=== PATIENT | male | born 1990 | race Caucasian/White ===

== ENCOUNTER 2023-02-14 11:45 | Outpatient (CLI) | payer MEDICAID | END 2023-02-14 12:00 | disposition home or self-care (01) | LOC: LAB.N 11:45 | PROVIDERS: ATTEND Family Medicine | DX: L02.415 Cutaneous abscess of right lower limb (principal) | CPT/HCPCS: 87070; 87181; 87205 ==

== ENCOUNTER 2023-11-04 10:27 | Outpatient (CLI) | payer MEDICAID ==
[2023-11-04 11:03] LABS: BASOPHILS % (AUTO) 0.4 %; EOSINOPHILS # (AUTO) 0.2 10^3/uL (0.0-0.7); EOSINOPHILS % (AUTO) 4.3 %; HCT - HEMATOCRIT 44.3 % (42.0-52.0); HGB - HEMOGLOBIN 15.2 g/dL (14.0-18.0); LYMPHOCYTES # (AUTO) 0.3 10^3/uL (1.5-3.5); LYMPHOCYTES % (AUTO) 6.7 %; MEAN CORPUSCULAR HEMOGLOBIN 30.6 pg (27.0-31.0); MEAN CORPUSCULAR HGB CONC 34.3 g/dL (32.0-36.0); MEAN CORPUSCULAR VOLUME 89.1 fL (80.0-94.0); MEAN PLATELET VOLUME 9.4 fL (7.4-11.4); MONOCYTES # (AUTO) 0.5 10^3/uL (0.0-1.0); MONOCYTES % (AUTO) 10.4 %; NEUTROPHILS # (AUTO) 3.6 10^3/uL (1.5-6.6); PLT - PLATELET COUNT 182 10^3/uL (130-450); RED BLOOD COUNT 4.97 10^6/uL (4.70-6.10); RED CELL DISTRIBUTION WIDTH 11.5 % (12.0-15.0); WHITE BLOOD COUNT 4.6 x10^3/uL (4.8-10.8)
[2023-11-04 11:22] LABS: ALBUMIN 5.1 g/dL (3.2-5.5); ALKALINE PHOSPHATASE 64 IU/L (42-121); ALT ALANINE AMINOTRANSFERASE 19 IU/L (10-60); AST ASPARTATE AMINOTRANSFERASE 20 IU/L (10-42); BILIRUBIN,TOTAL 0.5 mg/dL (0.2-1.0); BUN - BLOOD UREA NITROGEN 18 mg/dL (6-20); CALCIUM 9.8 mg/dL (8.5-10.3); CARBON DIOXIDE - CO2 31 mmol/L (21-32); CHLORIDE 99 mmol/L (101-111); CHOL/HDL RATIO 2.3 (<5.0); CHOLESTEROL 131 mg/dL; CREATININE 0.8 mg/dL (0.6-1.3); GFR - MDRD 110 (>89); GLUCOSE 104 mg/dL (74-104); HDL CHOLESTEROL 57 mg/dL; LDL CHOLESTEROL,CALCULATED 59 mg/dL; POTASSIUM 3.9 mmol/L (3.5-4.5); SODIUM 136 mmol/L (135-145); TOTAL PROTEIN 7.6 g/dL (6.4-8.9); TRIGLYCERIDES 73 mg/dL (48-352); VLDL CHOLESTEROL 15 mg/dL
[2023-11-04 11:38] LABS: THYROID STIMULATING HORMONE 0.91 uIU/mL (0.34-5.60)
== END 2023-11-04 10:28 | disposition home or self-care (01) ==
LOC: LAB 10:27
PROVIDERS: ATTEND Nurse Practitioner Family
DX: Z00.00 Encounter for general adult medical examination without abnormal findings (principal)
CPT/HCPCS: 36415; 80053; 80061; 83721; 84443; 85025

== ENCOUNTER 2024-04-08 12:20 | Emergency (ER) | payer BC, OTHER ==
--- NOTE | 2024-04-08 13:00 | ED Physician Documentation ---
History of Present Illness - Stated complaint Stated Complaint: LUMP RT SIDE STOMACH - Chief complaint Chief Complaint: Abd Pain - History obtained from History obtained from: Patient - History of Present Illness Pain level max: 0 Pain level now: 0 - Additonal information Additional information: 33-year-old male states that he has a hernia on the right lower side of his abdomen. He states that has been there for several months, he decided today that he should have it repaired. He states that he contacted his primary care provider but they had no appointments. Therefore he came to the emergency department. Is not currently having pain. No vomiting. No nausea. He states that it protrudes when he stands up or lifts heavy items, it goes back in easily. Review of Systems Constitutional: denies: Fever, Chills GI: denies: Vomiting, Diarrhea Skin: denies: Rash Musculoskeletal: denies: Neck pain, Back pain PD PAST MEDICAL HISTORY - Past Medical History Past Medical History: Yes Other Past Medical History: hernia - Past Surgical History Past Surgical History: Yes - Present Medications Home Medications: Ambulatory Orders Medication Instructions Recorded Confirmed hydrOXYzine HCL [Hydroxyzine HCl] 25 mg PO DAILY 04/08/24 04/08/24 - Allergies Allergies/Adverse Reactions: Allergies Allergy/AdvReac Type Severity Reaction Status Date / Time cat dander Allergy Itching Verified 04/08/24 12:35 - Social History Does the pt smoke?: No Smoking Status: Never smoker Does the pt drink ETOH?: No Substance Use and Type: Marijuana - Immunizations Immunizations are current?: Yes PD ED PE NORMAL - Vitals Vital signs reviewed: Yes - General General: Alert and oriented X 3, No acute distress - HEENT HEENT: PERRL, Moist mucous membranes - Neck Neck: Supple, no meningeal sign - Cardiac Cardiac: RRR, Strong equal pulses - Respiratory Respiratory: No respiratory distress, Clear bilaterally - Abdomen Abdomen: Soft, Non distended, Other (Small hernia near the pelvic brim on the right side. Easily reducible. Just superior to the pelvic brim) - Derm Derm: Warm and dry - Neuro Neuro: Alert and oriented X 3 - Psych Psych: Normal mood, Normal affect Results - Vitals Vitals: Vital Signs - 24 hr 04/08/24 04/08/24 12:36 12:47 Temperature 36.6 C Heart Rate 82 Respiratory 16 17 Rate Blood Pressure 121/72 O2 Saturation 100 Oxygen O2 Source Room air PD Medical Decision Making - ED course Complexity details: considered differential, d/w patient ED course: Patient with a small right lower abdominal hernia, just over the pelvic brim. Easily reducible. Not incarcerated. Patient asymptomatic here Recommend that he follow-up with his PCP for referral to surgery. I will also give him the number to the surgery clinic in case his insurance does not require a referral. Patient counseled regarding signs and symptoms for which I believe and urgent re-evaluation would be necessary. Patient with good understanding of and agreement to plan and is comfortable going home at this time This document was made in part using voice recognition software. While efforts are made to proofread this document, sound alike and grammatical errors may occur. Departure - Departure Disposition: 01 Home, Self Care Clinical Impression: Abdominal wall hernia Condition: Good Instructions: ED Hernia Inguinal Follow-Up: Surgical Care [Provider Group] Juni Granado MD [Provider Admit Priv/Credential] - Comments: As we discussed you do have a hernia, it is easily reducible. You need to return urgently if it becomes stuck and you cannot push it back into place. You can also try a hernia belt at home to see if this helps your symptoms. You will need to follow-up with a general surgeon to discuss operative repair. I have included the information for the general surgery clinic here as well as one of the formerly [facility] general surgeons, Dr. Granado. Please contact their office for follow-up. You may need a referral from your doctor. Forms: PCP List
[2024-04-08 13:26] VITALS: BP 111/63; O2SAT 99
== END 2024-04-08 13:30 | disposition home or self-care (01) ==
LOC: ED 12:20
DX: K43.9 Ventral hernia without obstruction or gangrene (principal); Z79.899 Other long term (current) drug therapy
CPT/HCPCS: 99282; 99283

== ENCOUNTER 2024-06-25 11:29 | Day surgery (SDC) | payer MEDICAID ==
[2024-06-25] MEDS: LACTATED RINGERS 1,000 ML IV ONE ×2 (11:34→13:59)
[2024-06-25] MEDS ORDERED: ceFAZolin 2 GM VIAL ONE (11:35)
[2024-06-25] MEDS ORDERED: lidocaine 1% 20 ML MDV ONE (11:51)
[2024-06-25] MEDS ORDERED: BUPIVACAINE 0.25% PF 30 ML VIAL ONE ×2 (11:51→13:00)
--- NOTE | 2024-06-25 12:12 | ANESTHESIA ---
Pre-Anesthesia VS, & Labs - Diagnosis right inguinal hernia - Procedure open right inguinal hernia repair Vital Signs: Temp Pulse Resp BP Pulse Ox O2 Flow Rate 36.8 C 74 14 120/74 98 06/25/24 11:45 06/25/24 11:45 06/25/24 11:45 06/25/24 11:45 06/25/24 11:45 Height: 6 ft Weight (kg): 58.1 kg Body Mass Index: 17.4 BMI Classification: Underweight - NPO >8 hours Home Medications and Allergies Home Medications: Ambulatory Orders Albuterol Sulf [Ventolin Hfa Inhaler] 1 - 2 puffs INH Q4HR PRN 06/18/24 hydrOXYzine HCL [Hydroxyzine HCl] 25 mg PO QPM 04/08/24 Albuterol Sulf [Ventolin Hfa Inhaler] 1 - 2 puffs INH Q4HR PRN 06/18/24 Allergies/Adverse Reactions: Allergies Allergy/AdvReac Type Severity Reaction Status Date / Time cat dander Allergy Itching Verified 04/08/24 12:35 niacin Allergy Rash Verified 06/18/24 14:54 hydrocodone AdvReac Mild Itching Uncoded 06/25/24 12:11 Anes History & Medical History - Anesthetic History Anesthesia Complications: reports: No previous complications Family history of Anesthesia Complications: Denies - Medical History Cardiovascular: reports: None Pulmonary: reports: Asthma (prn albuterol) Gastrointestinal: reports: None Urinary: reports: Kidney stones Musculoskeletal: reports: None Endocrine/Autoimmune: reports: None Skin: reports: Eczema Smoking Status: Current every day smoker (vapes) Psychosocial: reports: Cannabis (occasional) Exam General: Alert, Oriented x3 Dental: WNL, Other (left upper central incisor is chipped) Mouth Openin Fingerbreadth Neck Mobility: Normal Mallampati classification: II Thyromental Distance: 4-6 cm Respiratory: Lungs clear Cardiovascular: Regular rate Plan Anesthesia Type: General Consent for Procedure(s) Verified and Reviewed: Yes Code Status: Attempt Resuscitation ASA classification: 2-Mild systemic disease Is this case an emergency?: No
[2024-06-25] MEDS ORDERED: ATROPINE ABBOJECT 1 MG/10 ML SYRINGE IVP PRN (12:13)
[2024-06-25] MEDS ORDERED: HYDROmorphone 0.5 MG/0.5 ML SYRINGE IVP PRN ×2 (12:13→14:01)
[2024-06-25] MEDS ORDERED: METOCLOPRAMIDE 10 MG/2 ML VIAL IVP PRN (12:13)
[2024-06-25] MEDS ORDERED: fentaNYL 100 MCG/2 ML VIAL IVP PRN (12:13)
[2024-06-25] MEDS ORDERED: ONDANSETRON 4 MG/2 ML VIAL IVP PRN (12:13)
[2024-06-25] MEDS ORDERED: NALOXONE 0.4 MG/ML VIAL IVP PRN (12:13)
[2024-06-25] MEDS ORDERED: ePHEDrine 50 MG/ML VIAL IVP PRN (12:13)
[2024-06-25] MEDS ORDERED: LIDOCAINE-PF 2% 10 ML AMP SUBQ ONE (12:24)
[2024-06-25] MEDS ORDERED: MIDAZOLAM 2 MG/2 ML VIAL ONE (12:24)
[2024-06-25] MEDS ORDERED: PROPOFOL 200 MG/20 ML VIAL IVP ONE (12:24)
[2024-06-25] MEDS ORDERED: fentaNYL 100 MCG/2 ML VIAL ONE (12:24)
[2024-06-25] MEDS: BUPIVACAINE 0.25% PF 30 ML VIAL SUBQ ONE ×3 (12:55)
[2024-06-25] MEDS ORDERED: LACTATED RINGERS 1,000 ML IV SCH (13:00)
[2024-06-25] MEDS ORDERED: DEXAMETHASONE 4 MG/ML VIAL ONE (13:12)
[2024-06-25] MEDS ORDERED: ONDANSETRON 4 MG/2 ML VIAL ONE (13:12)
[2024-06-25] MEDS ORDERED: oxyCODONE 5 MG TABLET PO PRN (14:01)
--- NOTE | 2024-06-25 14:10 | OPERATIVE REPORT ---
Operative Report - General Procedure Date: 06/25/24 Planned Procedure: open right inguinal hernia repair Pre-Op Diagnosis: right inguinal hernia Procedure Performed: open right inguinal hernia repair Post Op Diagnosis: indirect right inguinal hernia - Procedure Note Primary Surgeon: arianna darby Anesthesia Technique: General LMA, Local Pathology: not sent Estimated Blood Loss (mL): 2 Indications: painful hernia bulge Findings: as above Complications: none - Other Other Information/Narrative: Patient was properly identified brought to the operating room and placed in supine position. Sequential compression devices were placed. Laryngeal mask anesthesia was induced. He was prepped and draped in a sterile fashion and given preoperative antibiotics. Local anesthetic was given throughout the procedure. A 5 cm incision was made in the direction of Linda's lines just cephalad of the pubic tubercle. Dissection proceeded with cutting current cautery. The superficial epigastric vein was identified clamped divided and tied with 3-0 Vicryl. Dissection proceeded down to the aponeurosis. The aponeurosis was opened in the direction of its fibers and extended to the external ring. Cord structures were mobilized and brought up. The nerves were carefully protected and preserved. Cord structures were mobilized and brought up. An indirect inguinal hernia was present. The hernia sac was mobilized off the cord structures and suture ligated with 2 O silk and further reduced. Preperitoneal fat was not present. Polypropylene mesh was cut to size and with tails. The mesh was secured with multiple interrupted 0 Ethibond sutures. She was placed along the pubic tubercle, Declan's ligament area and along the shelving border of Poupart's ligament. Sutures were placed medially along the abdominal wall musculature and internal oblique. The medial tail of the mesh was secured to the shelving border of Poupart's ligament with 3 interrupted 0 ethibond sutures recreating the internal ring of appropriate size. Aponeurosis was closed with a running 2-0 Vicryl suture. Scarpas fascia was closed with interrupted 3-0 Vicryl suture. Buried interrupted subdermal 3-0 Vicryl sutures were then placed. Skin was closed with a running 4-0 Monocryl subcuticular suture. Dressing was applied. Patient was awakened and brought to recovery in good condition.
[2024-06-25] MEDS: oxyCODONE 5 MG TABLET ONE (14:35)
[2024-06-25 14:57] VITALS: BP 133/77; O2SAT 97
--- NOTE | 2024-06-25 15:33 | ANESTHESIA POST OP EVALUATION ---
Anesthesia Post Eval - Post Anesthesia Eval Vitals: Last Vital Signs Temp 36.4 C L 06/25/24 14:48 Pulse 68 06/25/24 14:48 Resp 16 06/25/24 14:48 BP 133/77 H 06/25/24 14:48 Pulse Ox 97 06/25/24 14:48 O2 Flow Rate CV Function Including HR & BP: Stable Pain Control: Satisfactory Nausea & Vomiting: Negative Mental Status: Baseline Respiratory Status: Airway Patent Hydration Status: Satisfactory Anesthesia Complications: None
== END 2024-06-25 11:30 | disposition home or self-care (01) ==
LOC: SDS 11:29
PROVIDERS: ATTEND Surgery
DX: K40.91 Unilateral inguinal hernia, without obstruction or gangrene, recurrent (principal); R63.6 Underweight; Z68.1 Body mass index [BMI] 19.9 or less, adult; J45.909 Unspecified asthma, uncomplicated; F17.290 Nicotine dependence, other tobacco product, uncomplicated
CPT/HCPCS: 49520; A9270; C1781; J7120